=== PATIENT | female | born 2000 | race American Indian/Alaskan Native ===

== ENCOUNTER 2019-02-07 19:10 | Emergency (ER) | payer SELFPAY ==
[2019-02-07] MEDS ORDERED: LIDOCAINE-MPF (1%) 10 MG/1 ML VIAL 5 ML INFILTRATI ONE ×2 (20:40→21:08)
[2019-02-07 20:57] LABS: HCG Qualitative,Urine Negative (Negative)
[2019-02-07 21:00] LABS: Bacteria,Urine 1+ /HPF (Negative); Bilirubin,Urine NEG (Negative); Blood,Urine NEG (Negative); Color,Urine Yellow (Yellow); Mucus,Urine 3+ /HPF; Protein,Urine <15 mg/dL mg/dL (Negative); Urobilinogen,Urine < 2.0 mg/dL (<2.0)
[2019-02-07] MEDS ORDERED: AZITHROMYCIN 250 MG TAB PO ONE (21:08)
--- NOTE | 2019-02-07 21:17 | Emergency Department Report ---
ED Female HPI - General Chief complaint: Abdominal Pain Stated complaint: ABD PAIN/N/V Time Seen by Provider: 02/07/19 20:26 Source: patient Mode of arrival: Ambulatory Limitations: No Limitations - History of Present Illness Initial comments: Mrs. Barlow is a 18-year-old -[place] female who presented with multiple complaints after discussion primary complaint is vaginal discharge white thick malodorous 3 days. With intermittent abdominal pain and cramping. There is no fevers no chills there's no nausea vomiting last menstrual cycle 2 weeks ago. Patient is concerned for STI only. Patient does have a history of recurring axillary abscess however no abscess today. We'll obtain wet prep treated for STI exposure patient will follow with health department for HIV screening. MD Complaint: vaginal discharge, dysuria, possible STD Onset/Timin -: week(s) Location: suprapubic Radiation: suprapubic Severity: mild Severity scale (0 -10): 3 Quality: cramping Consistency: intermittent Worsens with: none Are you Now?: No Last Menstrual Period: 01/21/19 EDC: 10/28/19 Associated Symptoms: vaginal discharge - Related Data Sexually active: Yes : 0 Para: 0 A: 0 Previous Rx's Medication Instructions Recorded Last Taken Type Nitrofurantoin [place]/M-Cryst 100 mg PO BID 7 Days #14 capsule 02/07/19 Unknown Rx [Macrobid CAP] metroNIDAZOLE [Flagyl] 500 mg PO BID 10 Days #20 tab 02/07/19 Unknown Rx Allergies Allergy/AdvReac Type Severity Reaction Status Date / Time No Known Allergies Allergy Unverified 02/07/19 20:08 ED Review of Systems ROS: Stated complaint: ABD PAIN/N/V Other details as noted in HPI Constitutional: denies: chills, fever Eyes: denies: eye pain, eye discharge, vision change ENT: denies: ear pain, throat pain Respiratory: denies: cough, shortness of breath, wheezing Cardiovascular: denies: chest pain, palpitations Endocrine: no symptoms reported Gastrointestinal: abdominal pain. denies: nausea, diarrhea Genitourinary: urgency, dysuria, discharge Musculoskeletal: denies: back pain, joint swelling, arthralgia Skin: denies: rash, lesions Neurological: denies: headache, weakness, paresthesias Psychiatric: denies: anxiety, depression Hematological/Lymphatic: denies: easy bleeding, easy bruising ED Past Medical Hx - Past Medical History Previous Medical History?: Yes - Surgical History Past Surgical History?: Yes Additional Surgical History: - Social History Smoking Status: Never Smoker Substance Use Type: None - Medications Home Medications: Home Medications Medication Instructions Recorded Confirmed Last Taken Type Nitrofurantoin [place]/M-Cryst 100 mg PO BID 7 Days #14 capsule 02/07/19 Unknown Rx [Macrobid CAP] metroNIDAZOLE [Flagyl] 500 mg PO BID 10 Days #20 tab 02/07/19 Unknown Rx ED Physical Exam - General Limitations: No Limitations General appearance: alert, in no apparent distress - Head Head exam: Present: atraumatic, normocephalic - Eye Eye exam: Present: normal appearance, PERRL, EOMI Pupils: Present: normal accommodation - ENT ENT exam: Present: mucous membranes moist - Neck Neck exam: Present: normal inspection, full ROM. Absent: tenderness - Respiratory Respiratory exam: Present: normal lung sounds bilaterally. Absent: respiratory distress, wheezes, stridor - Cardiovascular Cardiovascular Exam: Present: regular rate, normal rhythm, normal heart sounds. Absent: systolic murmur, diastolic murmur, rubs, gallop - GI/Abdominal GI/Abdominal exam: Present: soft, normal bowel sounds. Absent: distended, tenderness, guarding, rebound, rigid, bruit, hernia - Rectal Rectal exam: Present: deferred - Extremities Exam Extremities exam: Present: normal inspection, full ROM, normal capillary refill - Back Exam Back exam: Present: normal inspection, full ROM. Absent: tenderness, CVA tenderness (R), CVA tenderness (L), rash noted - Neurological Exam Neurological exam: Present: alert, oriented X3, CN II-XII intact, normal gait - Psychiatric Psychiatric exam: Present: normal affect, normal mood - Skin Skin exam: Present: warm, dry, intact, normal color. Absent: rash ED Medical Decision Making - Medical Decision Making pt now advises that she has to leave and cannot wait for wet prep results, pt was tx's for sti exposure, will follow up with health department for hiv screening. pt dc'd to home in stable condition at this time. Critical care attestation.: If time is entered above; I have spent that time in minutes in the direct care of this critically ill patient, excluding procedure time. ED Disposition Clinical Impression: STI (sexually transmitted infection), Bacterial vaginosis Disposition: DC- TO HOME OR SELFCARE Is pt being admited?: No Does the pt Need Aspirin: No Condition: Stable Instructions: Bacterial Vaginosis (ED), Sexually Transmitted Diseases (ED) Prescriptions: metroNIDAZOLE [Flagyl] 500 mg PO BID 10 Days #20 tab Nitrofurantoin [place]/M-Cryst [Macrobid CAP] 100 mg PO BID 7 Days #14 capsule Referrals: [facility] [Outside] - 3-5 Days [facility] [Outside] - 3-5 Days Forms: STI Treatment and Prevention Time of Disposition: 21:37
== END 2019-02-07 21:42 | disposition home or self-care (01) ==
LOC: ED 19:10
DX: A64 Unspecified sexually transmitted disease (principal); N76.0 Acute vaginitis; Z98.890 Other specified postprocedural states
CPT/HCPCS: 81001; 81025; 96372; 99283; J0696